=== PATIENT | female | born 1940 | race Caucasian/White ===

== ENCOUNTER → 2016-11-03 | Outpatient (CLI) | payer OTHER ==
[~2016-11-03] VITALS: Ht 149.9 cm; Wt 60.9 kg
[~2016-11-03] MED LIST: B COMPLEX1 EAC1 PO; BUSPAR PO; CARAFATE 1 GM TA1 G1 PO; CELEBREX 200 M200 M1 PO; CENTRUM SILVER1 EAC4 PO; DETROL LA4 MG PO; FISH OIL 1,001000 M2 PO; GABAPENTIN 100100 MG PO; KLOR-CON 1010 MEQ PO; LASIX 20 MG TAB20 MG PO; LEVOTHYROXINE0.05 MG PO; LIPITOR40 MG PO; MYRBETRIQ50 MG PO; OXYCODONE HCL 55 MG PO; PERCOCET PO; PROTONIX40 M1 PO; TRAZODONE HCL50 MG PO; TUMS PO; VITAMIN B-12100 MC1 PO; ZIAC 5-6.25 MG1 EACH PO; ZYRTEC10 M5 PO
--- NOTE | ~2016-11-03 | HPC ---
[facility] [place] [address] PAIN MANAGEMENT CONSULTATION Name: NATALIA WALKER [id number] Admission: 11/03/16 Attend Phys: Earl Nunez MD Discharge: Date of : 38 Report #: [id number] THIS REPORT FOR: //name// CC: Miky Nunez DATE OF SERVICE: 11/03/2016 Followup visit for chronic back pain status post extensive laminectomy and fusion. The patient returns to pain clinic today and would like an epidural injection, the last injection was in March 2016 with good improvement. She will have chronic pain indefinitely. Her back is stiff. She has marked scoliotic change and has undergone an extensive fusion. Surgery was first in 1999, followed by 2001 surgery with significant hardware involving rods and 10 screws. Surgery was performed at [facility]. She has been able to manage her pain with medication including oxycodone and gabapentin. Today, she reports that her pain intensity is a 6-7/10, worse with standing and walking. She describes it as aching and stiffness. The patient moves from a sitting to standing position, walks with mild antalgic features. She has kyphosis and scoliosis. PHYSICAL EXAMINATION: Her blood pressure is 127/77, heart rate 72, respirations are 14, and BMI is 27.1. She has limited range of motion. Straight leg raising bilaterally is negative today. She has minimal tenderness. The patient complains also of pain in her right arm. She laughingly says that this is due to using a mouse and playing computer poker. She has tenderness in the volar surface of the forearm. Good range of motion of the wrist and hand. She has some numbness in the distribution of the median nerve. IMPRESSION: 1. Low back pain with radiculopathy, post-laminectomy fusion. 2. Probable tendinitis of the right forearm with also the possibility of likely carpal tunnel syndrome. 3. Insulin-dependent diabetes. 4. History of hypertension. 5. Peptic ulcer disease. PLAN: Lumbar epidural injection under fluoroscopic guidance. Procedure explained, risks and benefits, the patient is anxious to proceed. [address] [address] PAIN MANAGEMENT CONSULTATION Name: NATALIA WALKER MARYAM Room #: REG [facility] Dilip#: [id number] Admission: 11/03/16 Attend Phys: Earl Nunez MD Discharge: Date of : 38 Report #: [id number] PROCEDURE: She was taken to the fluoroscopic suite for treatment. She was placed prone, skin prepped with ChloraPrep. Skin anesthetized overlying the L2-L3 interspace. A 20-gauge Tuohy epidural needle was advanced in the epidural space with loss of resistance. No blood or CSF aspirated. 1 mL of Omnipaque injected. Good spread of dye observed in the epidural space followed by 3 mL of 0.5% lidocaine mixed with 80 mg triamcinolone. She tolerated the procedure well and was observed for 45 minutes and discharged. Followup as needed. By: [id number] Earl Nunez MD /nt
[2016-11-03 13:05] VITALS: BP 127/77
== END | disposition home or self-care (01) ==
LOC: PAIN 07:29
DX: M54.16 Radiculopathy, lumbar region (principal); E11.9 Type 2 diabetes mellitus without complications; I10 Essential (primary) hypertension; F17.210 Nicotine dependence, cigarettes, uncomplicated; K27.9 Peptic ulcer, site unspecified, unspecified as acute or chronic, without hemorrhage or perforation; Z79.4 Long term (current) use of insulin; Z98.890 Other specified postprocedural states

== ENCOUNTER → 2017-02-27 | Outpatient (CLI) | payer OTHER ==
[~2017-02-27] VITALS: Ht 162.6 cm; Wt 60.3 kg
--- NOTE | ~2017-02-27 | HPC ---
[facility] [address] PAIN MANAGEMENT CONSULTATION Name: NATALIA WALKER Room #: REG [facility] Dilip#: [id number] Admission: 02/27/17 Attend Phys: Alexander Avery DO Discharge: Date of : 38 Report #: [id number] THIS REPORT FOR: //name// CC: Miky Avery HISTORY OF PRESENT ILLNESS: The patient is a very pleasant 76-year-old female with extensive lumbar fusion, L2 through S1. She has been treated for ongoing lumbar radicular symptoms with epidural injections over time. I had done a right L4-L5 transforaminal epidural injection in March 2016 with good overall improvement for a period of time. She saw Dr. Nunez on 11/03/2016. He did a midline epidural injection at L2-L3, he had done this about a year prior on December 2015 as well. Last injection while it did afford overall relief, it did have some acute exacerbation of pain for several days subsequent. He returns to pain clinic today noting pain continues in the low back, radiating down to the right leg, posterior lateral calf with some radiation into the anterior thigh as well. Rates pain as 6-7 on a VAS. PHYSICAL EXAMINATION: Shows marked thoracic and lumbar kyphosis, antalgic gait, positive straight leg raise bilaterally; however Khalil test is negative. She does have some scoliosis above the fusion. ASSESSMENT: Symptomatic lumbar radiculopathy status post decompressive laminectomy, since the fusion. RECOMMENDATIONS: After a long discussion with the patient today, we elected to proceed with caudal injection under fluoroscopy today. If this does not afford adequate relief, we can consider right-sided transforaminal epidural injection at next visit. Otherwise, I will see the patient simply on an as needed basis. ASSESSMENT: Symptomatic lumbar radiculopathy status post decompressive laminectomy. PROCEDURE: Caudal epidural injection under fluoroscopy. PROCEDURE NOTE: After written informed consent was obtained, the patient was taken to the fluoroscopy suite and placed in prone position. After sterile prep and drape, skin wheal was raised. A 22-gauge stylet needle was placed to the ____ of the caudal epidural space. Negative aspiration was accomplished. 1 mL of Omnipaque was injected, which showed spread within the caudal epidural placed. This was followed with 80 mg of triamcinolone plus 4 mL of 0.5% preservative-free Xylocaine. Needle was removed. The area was cleansed, [address] [address] PAIN MANAGEMENT CONSULTATION Name: AARONNATALIA MARYAM Room #: REG [facility] Edmundo#: [id number] Admission: 02/27/17 Attend Phys: Alexander Avery DO Discharge: Date of : 38 Report #: [id number] Band-Aids applied. The patient was monitored for an appropriate period of time, discharged in good and stable condition. By: [id number] Alexander Avery DO /lanre
[2017-02-27 13:49] VITALS: BP 122/75
== END | disposition home or self-care (01) ==
LOC: PAIN 07:11
DX: M54.16 Radiculopathy, lumbar region (principal); G89.29 Other chronic pain; F17.200 Nicotine dependence, unspecified, uncomplicated; Z88.1 Allergy status to other antibiotic agents; Z98.890 Other specified postprocedural states; Z79.899 Other long term (current) drug therapy

== ENCOUNTER → 2017-03-23 | Outpatient (CLI) | payer OTHER ==
[~2017-03-23] VITALS: Ht 162.6 cm; Wt 58.9 kg
--- NOTE | ~2017-03-23 | HPC ---
[facility] [address] [place] [address] PAIN MANAGEMENT CONSULTATION Name: NATALIA WALKER Room #: REG [facility] Alan.#: [id number] Admission: 03/23/17 Attend Phys: Alexander Avery DO Discharge: Date of : 38 Report #: [id number] THIS REPORT FOR: //name// CC: Miky Avery The patient is a 76-year-old female, long known for symptomatic lumbar radiculopathy, status post decompressive laminectomy. She had epidural injection caudal approach on 02/27/2017 with really nominal efficacy. She has had prior epidural injections with much better relief, midline epidural injection above her fusion on 11/03/2016 and 12/02/2015 with good improvement. I trialed the right L4-L5 transforaminal epidural injection in 03/2016 also with moderate improvement. Returns to pain clinic today noting pain continues in the mid to low back, right side. ____ palpation is that the superior aspect of the fusion, L2 through L5. Lower extremity strength is diminished, but generally symmetric. Long discussion with the patient today about therapeutic options. Strongly encouraged increased range of motion activity, stressed that we will not make her pain free, is using gabapentin extremely low dose 100 mg at bedtime, she has it for about 3 years, suggest she try increasing this gradually to 200 at bedtime for about a week and then 300 at bedtime if able. Continue oxycodone p.r.n. These prescriptions are being provided by Dr. Bland. Today, we elected to proceed with epidural injection under fluoroscopy today. We can repeat an injection, but we will like to try and wait till later in the winter perhaps May or June. ASSESSMENT: Symptomatic lumbar radiculopathy, status post decompressive laminectomy. PROCEDURE: Lumbar epidural injection under fluoroscopy. PROCEDURE NOTE: After both written and informed consent to include risk of spinal cord damage, increased pain, weakness and dural puncture, the patient was taken to the fluoroscopy suite, placed in the prone position. After sterile prep and drape, a skin wheal with lidocaine was raised. A 22-gauge epidural Tuohy needle was inserted in the midline at the level of L1-L2 with good loss to resistance. Negative aspiration for cerebrospinal fluid or blood was noted. Then 1 mL of Omnipaque under biplanar fluoroscopy showed good spread within the epidural space. This was followed with 80 mg of triamcinolone plus 1 mL of 1.5% preservative-free Xylocaine, 0.5 mL Xylocaine was then injected to flush the [address] [address] PAIN MANAGEMENT CONSULTATION Name: NATALIA WALKER Room #: REG [facility].#: [id number] Admission: 03/23/17 Attend Phys: Alexander Avery DO Discharge: Date of : 38 Report #: [id number] needle; it was removed. The patient was monitored for an appropriate period of time and discharged in good and stable condition. By: [id number] Alexander Avery DO /nt
[2017-03-23 13:08] VITALS: BP 127/71
== END | disposition home or self-care (01) ==
LOC: PAIN 07:09
DX: M54.16 Radiculopathy, lumbar region (principal); F17.200 Nicotine dependence, unspecified, uncomplicated

== ENCOUNTER → 2017-07-20 | Outpatient (CLI) | payer OTHER ==
[~2017-07-20] VITALS: Ht 152.4 cm; Wt 62.1 kg
[~2017-07-20] MED LIST changes: +AMOXICILLIN 50500 MG PO; +BUSPIRONE HCL5 MG PO; +CLARITIN10 M2 PO; +CYMBALTA30 MG PO; +FLAGYL500 MG PO; +FUROSEMIDE 20 M20 M1 PO; +IPRATROPIU0.2 MG/1 M INH
--- NOTE | ~2017-07-20 | HPC ---
[facility] [place] [address] PAIN MANAGEMENT CONSULTATION Name: AARONNATALIA MARYAM [id number] Admission: 07/20/17 Attend Phys: Alexander Avery DO Discharge: Date of : 38 Report #: [id number] THIS REPORT FOR: //name// CC: Miky Avery The patient is a very pleasant 76-year-old female prior seen in the pain clinic on 03/23/2017 for symptomatic lumbar radiculopathy. She has a significant fusion from L2 through L5. She has done well with occasional epidural injections and actually injections above the fusion at L1-L2 have actually been quite efficacious. She returns to the pain clinic today noting pain has begun to recur, rates 7 on a VAS. Pain is in the mid back radiating down the right buttock and leg. She had 90% relief from the last injection for 2 months. PHYSICAL EXAMINATION: VITAL SIGNS: Blood pressure 146/79, pulse 85 and respiration 16. MUSCULOSKELETAL: Rises from chair using armrest. She has thoracic kyphosis. Well-healed surgical scar compatible with prior fusion. Limited range of motion of the lumbar spine. Lower extremity strength is diminished, but symmetric. Positive straight leg raise on the right. ASSESSMENT: Symptomatic lumbar radiculopathy, status post significant lumbar fusion. RECOMMENDATION: Epidural injection under fluoroscopy today at L1-L2. PROCEDURE: Lumbar epidural steroid injection. PROCEDURE NOTE: After both written and informed consent to include risk of spinal cord damage, increased pain, weakness and dural puncture, the patient was taken to the fluoroscopy suite, placed in the prone position. After sterile prep and drape, a skin wheal with lidocaine was raised. A 22-gauge epidural Tuohy needle was inserted in the midline at L1-L2 with good loss to resistance. Negative aspiration for cerebrospinal fluid or blood was noted. Then 1 mL of Omnipaque under biplanar fluoroscopy showed good spread within the epidural space. This was followed with 80 mg of triamcinolone plus 1 mL of 1.5% preservative-free Xylocaine, 0.5 mL Xylocaine was then injected to flush the needle; it was removed. The patient was monitored for an appropriate period of time and discharged in good and stable condition. <ELECTRONICALLY SIGNED> By: Alexander Avery DO 07/21/17 0758 [id number] Aleaxnder Avery DO /nt
[2017-07-20 14:08] VITALS: BP 146/79
== END | disposition home or self-care (01) ==
LOC: PAIN 07-13 07:42
DX: M54.16 Radiculopathy, lumbar region (principal); F17.200 Nicotine dependence, unspecified, uncomplicated

== ENCOUNTER → 2017-12-29 | Outpatient (CLI) | payer OTHER ==
[~2017-12-29] VITALS: Ht 152.4 cm; Wt 60.3 kg
[~2017-12-29] MED LIST changes: -AMOXICILLIN 50500 MG PO; -BUSPIRONE HCL5 MG PO; -CYMBALTA30 MG PO; -FLAGYL500 MG PO; -FUROSEMIDE 20 M20 M1 PO; -IPRATROPIU0.2 MG/1 M INH
--- NOTE | ~2017-12-29 | HPC ---
[facility] [place] [address] PAIN MANAGEMENT CONSULTATION Name: NATALIA WALKER [facility] [id number] Admission: 12/29/17 Attend Phys: Alexander Avery DO Discharge: Date of : 38 Report #: [id number] THIS REPORT FOR: //name// CC: Miky Avery HISTORY OF PRESENT ILLNESS: The patient is a 77-year-old female, prior seen in the pain clinic back in July. She is status post fairly extensive fusion, L2 through S1. She was given epidural injection above the fusion, L1-L2 with good overall improvement of pain. In fact, she has had multiple injections in 2-3 year since October of 2015. Last injection was 07/20/2017. She returns to Pain Clinic today noting pains a little difference in the right low back area. It does not radiate into the leg. Rates pain as 7 on a VAS, exacerbated with standing, walking and bending. PHYSICAL EXAMINATION: GENERAL: Shows a 77-year-old female. VITAL SIGNS: BMI is 26 kilograms per meter squared. Vital signs are stable as noted in the EMR. MUSCULOSKELETAL: Rises from chair using armrest. Very tender over the right SI. Grossly positive Kahlil test and Gaenslen test on this side. Lumbar flexion is limited. Lower extremity strength today is preserved and straight leg raise is fairly unremarkable. DIAGNOSTIC STUDIES: There are no recent diagnostic studies available for evaluation at this time. ASSESSMENT: Symptomatic right sacroiliac joint mediated pain by clinical exam and history in a patient status post fairly extensive lumbar fusion, L2 through the sacrum. History of lumbar radiculopathy status post decompressive laminectomy. RECOMMENDATIONS: Right SI joint injection under fluoroscopy today, core strengthening exercises discussed with the patient. Follow up in 2 weeks for reevaluation. Consideration for repeat epidural injection if indicated clinically. If radicular symptoms predominate at that time. PROCEDURE NOTE ASSESSMENT: Symptomatic right sacroiliac mediated pain. PROCEDURE: Right SI joint injection under fluoroscopy. PROCEDURE: After written informed consent was obtained, the patient was taken to the fluoroscopy suite and placed in prone position. After sterile prep and drape, skin wheal was raised. A 22-gauge stylet needle was placed to contact the inferior aspect of the right SI joint. Negative aspiration was [address] [address] PAIN MANAGEMENT CONSULTATION Name: AARONNATALIA KAY Room #: REG [facility] Dilip#: [id number] Admission: 12/29/17 Attend Phys: Alexander Avery DO Discharge: Date of : 38 Report #: [id number] accomplished. A 1 mL of Omnipaque was injected, which showed spread within the joint followed with 40 mg triamcinolone plus 2 mL of 0.5% preservative-free bupivacaine. Needle was removed. The area was cleansed, Band-Aids applied. The patient monitored for an appropriate period of time, discharged in good and stable condition, noting incremental improvement in the baseline pain. Fluoroscopy time was under 15 seconds. <ELECTRONICALLY SIGNED> By: Alexander Avery DO 01/01/18 0706 [id number] [id number] Alexander Avery DO /nt
[2017-12-29 10:37] VITALS: BP 123/65
== END ==
LOC: PAIN 07:13
DX: M53.3 Sacrococcygeal disorders, not elsewhere classified (principal); G89.29 Other chronic pain; F17.210 Nicotine dependence, cigarettes, uncomplicated; Z88.8 Allergy status to other drugs, medicaments and biological substances; Z98.890 Other specified postprocedural states

== ENCOUNTER → 2018-01-11 | Outpatient (CLI) | payer OTHER ==
[~2018-01-11] VITALS: Ht 152.4 cm; Wt 60.6 kg
[~2018-01-11] MED LIST changes: +CYMBALTA30 MG PO
--- NOTE | ~2018-01-11 | HPC ---
[facility] [place] [address] PAIN MANAGEMENT CONSULTATION Name: NATALIA WALKER MARYAM Room #: REG [facility] Alan.#: [id number] Admission: 01/11/18 Attend Phys: Alexander Avery DO Discharge: Date of : 38 Report #: [id number] THIS REPORT FOR: //name// CC: Miky Avery DATE OF SERVICE: 01/11/2018 The patient is a 77-year-old female, prior seen for lumbar radiculopathy, status post extensive decompression laminectomy and fusion (fused from L2 through S1), sacral spondylosis without myelopathy. She had had an epidural injection at the top of her fusion L1-L2 on 07/20/2017 with really nominal efficacy. She is having some right-sided low back pain. Last visit, 12/29/2017, I did a right SI joint injection, which did help with her right low back pain. She returns to pain clinic today noting pain continues to be primarily in the mid lumbar area, right a little greater than left. The SI joint pain has essentially resolved, but she has axial pain exacerbated with weightbearing. She does get a little relief if she walks leaning forward over a grocery cart. We did talk a little today about using a walker. With ongoing pain that she rates as a 7 on a VAS despite taking oxycodone 5 mg up to 4 times a day (prescribed by her general road foreman physician), gabapentin 300 mg in the morning and Celebrex 200 mg daily, she still feels the pain significantly interferes with function. PHYSICAL EXAMINATION: Today, does show a pleasant 5 feet tall, 133 pound female, BMI is 26.1 kg per meter squared, blood pressure 132/71, pulse 65, respirations 16. She is alert and oriented to person, place and time, appears younger than stated age. Rises from chair using armrest. Has a markedly scoliotic back. Diffuse tenderness across the low back, limited range of motion with rotation and sidebending compatible with her fairly extensive fusion. Lower extremity strength at this time is generally symmetric, though somewhat diminished, perhaps 3/5 to objective testing. Straight leg raise negative. Patellar and Achilles reflexes are preserved. We had a prolonged visit today discussing therapeutic options. She is seen in the company of her daughter who is supportive. She was seen from 10:30-11:00 a.m. Greater than 50% of the 30-minute visit was spent counseling the patient. Today, we did decide to start the patient on some Cymbalta 30 mg 1 a day. We will try this for 30 days. If this affords efficacy, we will have her continue, I did write for 30 tablets with 3 refills. We did have a prolonged visit about spinal cord stimulator as a possible therapeutic option. She has really failed other conservative therapies. She [address] [address] PAIN MANAGEMENT CONSULTATION Name: NATALIA WALKER Room #: REG [facility] Dliip#: [id number] Admission: 01/11/18 Attend Phys: Alexander Avery DO Discharge: Date of : 38 Report #: [id number] has pain that interferes with function. She has a classic failed back clinical picture. She has had extensive fusion from L2 down to S1. She has pain with axial loading impact functional status. She is taking approximately 20 mg oxycodone, equivalent to 30 mg of morphine daily with nominal efficacy, still has pain at 7 on a VAS. She is loathe to take higher dose opiates and I applaud that decision. We talked about risks, benefits of spinal cord stimulator including proposed mechanism of action. I used the plastic model spine to review the patient's anatomy and talked about the stimulator. The patient was given contact information for psychological evaluation as required by most third alliance party payers. I did give her a DVD and print brochure regarding high frequency stimulation (Nevro). All questions were answered. The patient again was given prescription for Cymbalta and discharged in good and stable condition. ASSESSMENT: 1. Failed back syndrome. 2. Status post lumbar decompressive laminectomy fusion from L2-S1. 3. Myofascial pain component. 4. Sacral spondylosis without myelopathy. <ELECTRONICALLY SIGNED> By: Alexander Avery DO 01/12/18 0829 [id number] Alexander Avery DO /nt
[2018-01-11 10:27] VITALS: BP 132/71
== END ==
LOC: PAIN 08:27
DX: M47.818 Spondylosis without myelopathy or radiculopathy, sacral and sacrococcygeal region (principal)